=== PATIENT | female | born 1960 | race Caucasian/White ===

== ENCOUNTER 2017-11-11 02:14 | Emergency (ER) | payer MEDICAID ==
[2017-11-11 02:31] VITALS: BMI 37.1
[2017-11-11 02:32] VITALS: O2SAT 99
[2017-11-11 02:57] VITALS: RESP 16
[2017-11-11 04:28] LABS: BASO # 0.1 K/uL (0.0-0.2); BASO % 1.4 % (0.0-2.0); EOS # 0.3 K/uL (0.0-0.7); EOS % 3.6 % (0.0-4.0); HEMOGLOBIN 11.7 g/dL (12.0-16.0); LYMPH # 1.9 K/uL (1.0-4.3); LYMPH % 25.5 % (20.0-40.0); MEAN CELL VOLUME 76.2 fl (81.0-99.0); MEAN CORPUSCULAR HEMOGLOBIN 24.6 pg (27.0-31.0); MEAN CORPUSCULAR HGB CONC 32.3 g/dL (33.0-37.0); MEAN PLATELET VOLUME 9.3 fl (7.2-11.7); MONO # 0.7 K/uL (0.0-0.8); MONO % 9.6 % (0.0-10.0); NEUT # 4.5 K/uL (1.8-7.0); NEUT % 59.9 % (50.0-75.0); NRBC % 0.1 % (0.0-0.0); RBC 4.77 Mil/uL (3.80-5.20); RED CELL DISTRIBUTION WIDTH 14.2 % (11.5-14.5); WHITE BLOOD COUNT 7.5 K/uL (4.8-10.8)
[2017-11-11 04:38] LABS: ALB/GLOB RATIO 1.1 (1.0-2.1); ALBUMIN 4.1 g/dL (3.5-5.0); ALT/SGPT 19 U/L (9-52); AST/SGOT 26 U/L (14-36); BLOOD UREA NITROGEN 19 mg/dl (7-17); CALCIUM 9.2 mg/dL (8.4-10.2); GFR AFRICAN-AMERICAN > 60; GFR NON-AFRICAN AMERICAN > 60
--- NOTE | 2017-11-11 04:41 | ED PDOC ---
Lower Extremity Pain/Injury Time Seen by Provider: 11/11/17 02:59 Chief Complaint (Nursing): Lower Extremity Problem/Injury Chief Complaint (Provider): b/l lower extremity pain History Per: Patient History/Exam Limitations: no limitations Current Symptoms Are (Timing): Still Present Additional Complaint(s): Jose Juan Guidry is a 57 year old female, with a past medical history of HTN and CAD, who presents to the emergency department complaining of b/l lower extremity pain and swelling. Patient states swelling is worst than pain. She denies any falls, injuries, fever, chills, shortness of breath or chest pain. No further medical complaints. PMD: None provided Past Medical History Reviewed: Historical Data, Nursing Documentation, Vital Signs Vital Signs: Last Vital Signs Temp 98.6 F 11/11/17 02:52 Pulse 59 L 11/11/17 02:52 Resp 16 11/11/17 02:52 BP 168/95 H 11/11/17 02:52 Pulse Ox 99 11/11/17 02:52 - Medical History PMH: Arthritis, CHF (diastolic), HTN, Hypercholesterolemia Denies: Atrial Fibrillation, Chronic Kidney Disease - Family History Family History: States: Unknown Family Hx - Immunization History Hx Tetanus Toxoid Vaccination: No Hx Influenza Vaccination: No Hx Pneumococcal Vaccination: No - Home Medications Home Medications: Ambulatory Orders Medication Instructions Recorded Lisinopril 12.5 mg PO DAILY 09/05/14 Naproxen 500 mg PO BID #30 tab 10/21/15 Cyclobenzaprine [Flexeril] 5 mg PO Q8 #7 tab 06/21/16 Ibuprofen [Motrin] 600 mg PO Q6 PRN #30 tab 06/21/16 Lisinopril [Prinivil] 12.5 mg PO DAILY 06/21/16 - Allergies Allergies/Adverse Reactions: Allergies Allergy/AdvReac Type Severity Reaction Status Date / Time No Known Allergies Allergy Verified 10/21/15 10:06 Review of Systems ROS Statement: Except As Marked, All Systems Reviewed And Found Negative Constitutional: Negative for: Fever, Chills Cardiovascular: Negative for: Chest Pain Respiratory: Negative for: Shortness of Breath Musculoskeletal: Positive for: Leg Pain (b.l lower extremity swelling) Physical Exam - Reviewed Nursing Documentation Reviewed: Yes Vital Signs Reviewed: Yes - Physical Exam Appears: Positive for: No Acute Distress Head Exam: Positive for: ATRAUMATIC, NORMAL INSPECTION, NORMOCEPHALIC Skin: Positive for: Normal Color, Warm, Dry Eye Exam: Positive for: Normal appearance, EOMI, PERRL Neck: Positive for: Painless ROM Cardiovascular/Chest: Positive for: Regular Rate, Rhythm. Negative for: Murmur Respiratory: Positive for: Normal Breath Sounds. Negative for: Respiratory Distress Gastrointestinal/Abdominal: Positive for: Normal Exam, Soft. Negative for: Tenderness Extremity: Positive for: Normal ROM (upper and lower extremities), Capillary Refill (Good pulse, distal sensation and capitally refill intact), Other (2+ pitting edema, dusky and hyperpigmented in appearance.) - Laboratory Results Result Diagrams: 11/11/17 04:25 11/11/17 04:25 - ECG O2 Sat by Pulse Oximetry: 99 (RA) Pulse Ox Interpretation: Normal Medical Decision Making Medical Decision Making: Time: 02:59 Initial Impression: b/l lower extremity edema, consider CHF, DVT vs cellulitis Initial Plan: --EKG --B-Type Natriuretic Peptide --CMP --Troponin I --CBC w/ differential --Chest portable [RAD] --Reevaluation CXR : CM, +mild venous congestion, as read by DON EKG : SB at 46 bpm, no acute ST changes, as read by DON Labs reviewed : trop (-), BNP 274. Considering negative BNP, US dopplers of b/l LE ordered to r/o DVT. Previous medical records reviewed and patient has had a h/o DVT in the past. Lab, EKG and CXR results d/w the patient, notified of plan to obtain US, which she agrees to. ----- Scribe Attestation: Documented by Chris Samuel, acting as a scribe for Isaura Calhoun PA-C. Provider Scribe Attestation: All medical record entries made by the Scribe were at my direction and personally dictated by me. I have reviewed the chart and agree that the record accurately reflects my personal performance of the history, physical exam, medical decision making, and the department course for this patient. I have also personally directed, reviewed, and agree with the discharge instructions and disposition. Disposition - Clinical Impression Clinical Impression: Lower extremity edema - Disposition Disposition: Transfer of Care (Case endorsed to Dr. Murray pending US dopplers, re-evaluation and final disposition.) Disposition Time: 07:00 Condition: STABLE Forms: [employer] (Swedish) - PA / VITICULTURIST / Resident Statement MD/DO has reviewed & agrees with the documentation as recorded.
[2017-11-11 04:54] LABS: B-TYPE NATRIURETIC PEPTIDE 274 pg/ml (0-900)
--- NOTE | 2017-11-11 10:23 | RAD ---
Date of service: 11/11/2017 HISTORY: LE edema COMPARISON: No prior. FINDINGS: LUNGS: No active pulmonary disease. PLEURA: No significant pleural effusion identified, no pneumothorax apparent. CARDIOVASCULAR: Cardiomediastinal silhouette enlarged. OSSEOUS STRUCTURES: Degenerative changes VISUALIZED UPPER ABDOMEN: Normal. OTHER FINDINGS: None. IMPRESSION: No active disease.
--- NOTE | 2017-11-11 11:34 | US ---
Date of service: 11/11/2017 PROCEDURE: Bilateral lower extremity venous duplex Doppler. HISTORY: swelling, r/o DVT COMPARISON: None available. TECHNIQUE: Bilateral common femoral, superficial femoral, popliteal and posterior tibial veins were evaluated. Flow was assessed with color Doppler, compressibility, assessment of phasic flow and augmentation response. FINDINGS: COMMON FEMORAL VEIN: Right CFV: Unremarkable. Left CFV: Unremarkable. SUPERFICIAL FEMORAL VEIN: Right SFV: Unremarkable. Left SFV: Unremarkable. POPLITEAL VEIN: Right Popliteal: Unremarkable. Left Popliteal: Unremarkable. POSTERIOR TIBIAL VEIN: Right PTV: Unremarkable. Left PTV: Unremarkable. OTHER FINDINGS: None. IMPRESSION: No evidence of deep venous thrombosis.
--- NOTE | 2017-11-11 13:08 | ED PDOC ---
- Laboratory Results Result Diagrams: 11/11/17 04:25 11/11/17 04:25 - ECG O2 Sat by Pulse Oximetry: 99 (RA) Disposition - Clinical Impression Clinical Impression: Lower extremity edema, Cellulitis - POA Present On Arrival: None - Disposition Referrals: [facility] [Outside] Disposition: Routine/Home Disposition Time: 13:06 Condition: STABLE Prescriptions: Clindamycin [Cleocin] 300 mg PO TID #30 cap Naproxen [Naprosyn] 500 mg PO Q12H #20 tab Instructions: Cellulitis and Erysipelas (Skin Infections) Forms: [facility] (Sammarinese)
[2017-11-11 13:20] VITALS: BP 175/82; PULSE 51; TEMP 97.9
--- NOTE | 2017-11-11 20:03 | CARD ---
APPROVED REPORT Date of service: 11/11/2017 EKG Measurement Heart [id number] <Conclusion> Sinus bradycardia with marked sinus arrhythmia Minimal voltage criteria for LVH, may be normal variant T wave abnormality, consider lateral ischemia Abnormal ECG
== END 2017-11-11 13:44 | disposition home or self-care (01) ==
LOC: H.ER 02:14
DX: M79.89 Other specified soft tissue disorders (principal); R60.0 Localized edema; E78.00 Pure hypercholesterolemia, unspecified; I10 Essential (primary) hypertension; I50.32 Chronic diastolic (congestive) heart failure; I11.0 Hypertensive heart disease with heart failure